=== PATIENT | female | born 1975 | race African-American/Black ===

== ENCOUNTER 2016-08-16 12:55 | Emergency (ER) | payer MEDICAID ==
[~2016-08-16] VITALS: Ht 172.7 cm; Wt 63.5 kg
[~2016-08-16 12:55] MED LIST: NORCO 5-325 TA1 EACH ORAL; PREDNISONE20 MG ORAL; TRAMADOL HCL50 MG ORAL
[2016-08-16 13:13] VITALS: BP 114/74
[2016-08-16] MEDS ORDERED: Methocarbamol 750mg tab ORAL ONE (13:30)
[2016-08-16] MEDS ORDERED: IBUPROFEN600 MG ORAL (13:48)
[2016-08-16] MEDS ORDERED: ROBAXIN-750750 MG PO (13:48)
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
[2016-08-16 13:59] VITALS: BP 114/74
== END 2016-08-16 13:59 | disposition home or self-care (01) ==
LOC: EMR 13:18
DX: T14.90 Injury, unspecified (principal); M25.561 Pain in right knee; M54.9 Dorsalgia, unspecified; V43.52XA Car driver injured in collision with other type car in traffic accident, initial encounter; Y93.9 Activity, unspecified; Y92.410 Unspecified street and highway as the place of occurrence of the external cause; Z88.6 Allergy status to analgesic agent
CPT/HCPCS: 99284

== ENCOUNTER 2016-08-19 14:26 | Emergency (ER) | payer MEDICAID ==
[~2016-08-19] VITALS: Ht 172.7 cm; Wt 63.5 kg
[~2016-08-19 14:26] MED LIST changes: +IBUPROFEN600 MG ORAL; +ROBAXIN-750750 MG PO
[2016-08-19 14:51] VITALS: BP 94/62
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
[2016-08-19] MEDS ORDERED: SOMA350 MG PO (15:48)
[2016-08-19 16:05] VITALS: BP 94/62
== END 2016-08-19 16:05 | disposition home or self-care (01) ==
LOC: EMR 14:59
DX: M62.838 Other muscle spasm (principal); M54.2 Cervicalgia; Z88.6 Allergy status to analgesic agent
CPT/HCPCS: 72040; 99283

== ENCOUNTER 2016-11-16 13:25 | Emergency (ER) | payer MEDICAID ==
[~2016-11-16] VITALS: Ht 172.7 cm; Wt 68.0 kg
[~2016-11-16 13:25] MED LIST changes: +SOMA350 MG PO
[2016-11-16 13:49] VITALS: BP 120/71
[2016-11-16] MEDS ORDERED: Methocarbamol 750mg tab ORAL ONE (14:00)
[2016-11-16] MEDS ORDERED: IBUPROFEN600 MG ORAL (14:26)
[2016-11-16] MEDS ORDERED: ROBAXIN-750750 MG PO (14:26)
[2016-11-16 14:38] VITALS: BP 120/71
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
== END 2016-11-16 14:40 | disposition home or self-care (01) ==
LOC: EMR 13:54
DX: S16.1XXA Strain of muscle, fascia and tendon at neck level, initial encounter (principal); V48.5XXA Car driver injured in noncollision transport accident in traffic accident, initial encounter; Y93.9 Activity, unspecified; Y92.481 Parking lot as the place of occurrence of the external cause; Z88.6 Allergy status to analgesic agent
CPT/HCPCS: 99284

== ENCOUNTER 2017-09-27 12:08 | Emergency (ER) | payer MEDICAID ==
[~2017-09-27] VITALS: Ht 172.7 cm; Wt 65.8 kg
--- NOTE | 2017-09-27 13:21 | Emergency Room Report ---
History of Present Illness General Chief Complaint: Female Urogenital Problems Present Illness HPI 42-year-old female patient presents ER complaining of difficulty urinating for the past day and dysuria. Reports that she was able to "dribble a little bit of urine" at 2 AM this morning but has been hesitant to do so secondary to pain symptoms.. Has been able to urinate on the ER. Denies vaginal discharge. denies hematuria, general rash or lesions. Denies itching. Denies fever, chest pain, shortness of breath, flank pain. Denies vomiting. Denies back pain. (Toro Dominguez) Allergies: Coded Allergies: CODEINE (Unverified Allergy, Unknown, 08/22/14) Patient History Past Medical History: see triage record Last Menstrual Period: 09/23/17 Now: No Reviewed Nursing Documentation: PMH: Agreed; PSxH: Agreed (Toro Dominguez) Nursing Documentation-PMH Hx Hypertension: No Hx Pacemaker: No Hx Asthma: No Hx COPD: No Hx Diabetes: No Hx Cancer: No Hx Gastrointestinal Problems: No Hx Dialysis: No Hx Cerebrovascular Accident: No Hx Seizures: No (Toro Dominguez P.ATheodora) Review of Systems All Other Systems: negative except mentioned in HPI (Toro Dominguez P.Bret) Physical Exam Vital Signs Date Time Temp Pulse Resp B/P (MAP) Pulse Ox O2 Delivery O2 Flow Rate FiO2 09/27/17 12:18 98.2 78 16 129/92 100 Room Air 98.2 Sp02 EP Interpretation: reviewed, normal General Appearance: well appearing, no apparent distress, alert, GCS 15, non- toxic Head: normocephalic, atraumatic Eyes: bilateral eye normal inspection, bilateral eye PERRL ENT: hearing grossly normal, normal pharynx, no angioedema, normal voice, uvula midline, moist mucus membranes Neck: full range of motion Respiratory: lungs clear, normal breath sounds, no rhonchi, no respiratory distress, no accessory muscle use, no wheezing, speaking full sentences Cardiovascular #1: regular rate, rhythm, no edema Genitourinary: no CVA tenderness, deferred Musculoskeletal: back normal, digits/nails normal, gait/station normal, normal range of motion, non-tender Neurologic: alert, oriented x3, responsive, motor strength/tone normal, sensory intact Psychiatric: mood/affect normal Skin: no rash (Toro Dominguez) Medical Decision Making PA Attestation Dr. Steele is my supervising Physician whom patient management has been discussed with. (Toro Dominguez) Diagnostic Impression: Primary Impression: Urinary tract infection ER Course Pt presents to ED c/o dysuria. DDX considered but are not limited to cystitis, pyelonephritis, STI, vaginitis, . VITAL SIGNS are WNL, patient is afebrile. Ordered UA and urine . ER COURSE UA results show positive nitrites, positive bacteria, indicate UTI, will treat with abx. urine negative. Informed patient of results. If concern for STI, followup with STI clinic for testing and treatment. Denies STI concern. Drink plenty of fluids. Patient is resting comfortably in chair, nontoxic appearing, in no acute distress. Patient states they feel better and is ready to go home. DISCHARGE -Rx provided for Keflex Patient is stable for discharge. Patient resting comfortably, in no acute distress, nontoxic appearing, talking without difficulty. Will provide with patient care instructions and any necessary prescriptions. Patient understands and agrees to treatment plan. Patient encouraged to drink plenty of fluids. Patient to take medication as instructed. Care plan and follow-up instructions provided. Patient questions asked and answered. Reports understanding and agreement to treatment plan. Patient instructed to follow-up with primary care provider in 3 - 5 days. ER precautions given. Patient instructed to return to ER immediately for any new or worsening of symptoms. Including but not limited to fever, abdominal pain , intractable vomiting. - Please note that this Emergency Department Report was dictated using [email or web address] machine operator technology software, occasionally this can lead to erroneous entry secondary to interpretation by the dictation equipment. Labs Test 09/27/17 12:56 Urine Color Pale yellow Urine Appearance Clear Urine pH 6 (4.5-8.0) Urine Specific [place] 1.005 (1.005-1.035) Urine Protein Negative (NEGATIVE) Urine Glucose (UA) Negative (NEGATIVE) Urine Ketones Negative (NEGATIVE) Urine Occult Blood 2+ (NEGATIVE) Urine Nitrite Positive (NEGATIVE) Urine Bilirubin Negative (NEGATIVE) Urine Urobilinogen Normal MG/DL (0.0-1.0) Urine Leukocyte Esterase 3+ (NEGATIVE) Urine RBC 2-4 /HPF (0 - 2) Urine WBC 10-15 /HPF (0 - 2) Urine Squamous Epithelial Cells Few /LPF (NONE/OCC) Urine Bacteria Moderate /HPF (NONE) Urine HCG, Qualitative Negative (NEGATIVE) (Toro Dominguez) ER Course I had the pleasure speaking with Ms. Ahn today, in follow-up phone call, she reports her urinary symptoms are greatly improved since Michell K prescribe her Keflex, and she is very satisfied with his service and requested that I mention that. She is feeling much better after taking Keflex, so I will not change her antibiotics as there is a culture that reported intermediate sensitivity tocefazolin, although it was Rocephin sensitive. (ARTEM DE LA GARZA M.D) Last Vital Signs Date Time Temp Pulse Resp B/P (MAP) Pulse Ox O2 Delivery O2 Flow Rate FiO2 09/27/17 12:18 98.2 78 16 129/92 100 Room Air 98.2 (Toro Dominguez) Disposition: HOME, SELF-CARE Condition: Stable Scripts Cephalexin* (KEFLEX*) 500 Mg Capsule 500 MG ORAL EVERY 12 HOURS, #14 CAP 0 Refills Prov: Toro Dominguez 09/27/17 Referrals: [facility]ERR[facility] (PCP) Patient Instructions: Urinary Tract Infection Additional Instructions: Followup with primary care provider and followup with and/or OBGYN as needed. Drink plenty of fluids. Take medications as directed. Follow-up with STI clinic and/or primary care provider for further testing and treatment for evaluation of STI. Patient questions asked and answered. ER precautions given, patient instructed to return to ER immediately for any new or worsening of symptoms. Toro Dominguez Sep 27, 2017 13:21 ARTEM DE LA GARZA M.D Sep 30, 2017 15:07
[2017-09-27 13:30] VITALS: BP 129/92
[2017-09-27 13:48] LABS: APPEARANCE,URINE CLEAR; BILIRUBIN, URINE NEGATIVE (NEGATIVE); COLOR,URINE PALE YELLOW; GLUCOSE, URINE (UA) NEGATIVE (NEGATIVE); KETONES,URINE NEGATIVE (NEGATIVE); LEUKOCYTE ESTERASE ,URINE 3+ (NEGATIVE); NITRITE,URINE POSITIVE (NEGATIVE); PH,URINE 6 (4.5-8.0); PROTEIN,URINE NEGATIVE (NEGATIVE); UROBILINOGEN,URINE NORMAL MG/DL (0.0-1.0)
[2017-09-27] MEDS ORDERED: CEPHALEXIN500 MG ORAL (14:06)
== END 2017-09-27 13:30 | disposition home or self-care (01) ==
LOC: EMR 13:17
DX: N39.0 Urinary tract infection, site not specified (principal); Z88.6 Allergy status to analgesic agent
CPT/HCPCS: 81003; 81025; 87086; 87181; 99283

== ENCOUNTER 2017-10-09 07:54 | Emergency (ER) | payer MEDICAID ==
[~2017-10-09] VITALS: Ht 172.7 cm; Wt 65.3 kg
[~2017-10-09 07:54] MED LIST changes: +CEPHALEXIN500 MG ORAL
--- NOTE | 2017-10-09 08:27 | Emergency Room Report ---
History of Present Illness General Chief Complaint: Chest Pain Source: Patient Present Illness HPI Patient just with complaints of palpitation sensation Weight loss Reports that in June she had thyroid examination done on blood test However there has been some mixup she has not been able to get her results Over the past few days had increased episodes of palpitation sensation Denies any chest pain with this Denies any shortness of breath Denies any back or flank pain She reports abnormal menstrual cycle starting before her next regular cycle Allergies: Coded Allergies: CODEINE (Unverified Allergy, Unknown, 08/22/14) Patient History Past Medical History: see triage record Pertinent Family History: none Last Menstrual Period: on period Reviewed Nursing Documentation: PMH: Agreed; PSxH: Agreed Nursing Documentation-PMH Past Medical History: No Stated History Hx Hypertension: No Hx Pacemaker: No Hx Asthma: No Hx COPD: No Hx Diabetes: No Hx Cancer: No Hx Gastrointestinal Problems: No Hx Dialysis: No Hx Cerebrovascular Accident: No Hx Seizures: No Review of Systems All Other Systems: negative except mentioned in HPI Physical Exam Vital Signs Date Time Temp Pulse Resp B/P (MAP) Pulse Ox O2 Delivery O2 Flow Rate FiO2 10/09/17 07:56 98.1 69 14 121/83 100 Room Air 98.1 Sp02 EP Interpretation: reviewed, normal General Appearance: well appearing, no apparent distress Head: normocephalic, atraumatic Eyes: bilateral eye PERRL, bilateral eye EOMI ENT: hearing grossly normal, normal pharynx, TMs + canals normal, uvula midline Neck: full range of motion, supple, no meningismus, no bony tend Respiratory: lungs clear, normal breath sounds, no rhonchi, no respiratory distress, no retraction, no accessory muscle use Cardiovascular #1: normal peripheral pulses, regular rate, rhythm, no edema, no gallop, no JVD, no murmur Gastrointestinal: normal bowel sounds, non tender, soft, no mass, no organomegaly, non-distended, no guarding, no hernia, no pulsatile mass, no rebound Genitourinary: no CVA tenderness Musculoskeletal: normal inspection Neurologic: oriented x3, responsive, fur dyer III-XII nml as tested, motor strength/ tone normal, sensory intact Psychiatric: mood/affect normal Skin: normal color, no rash, warm/dry, palpation normal Lymphatic: normal inspection, no adenopathy Medical Decision Making Diagnostic Impression: Primary Impression: Palpitations ER Course Patient is a fairly complex patient with multiple differential to consideration including but not limited to cardiac cardiopulmonary and vascular emergencies Patient's EKG does not show any obvious ST elevation Blood work is appropriate with normal thyroid function test patient does have marijuana in her system and reports that she smokes marijuana regularly Also discussed possible side effects and risk factors with cardiac pathology Patient has follow up closely with her primary physician her urine still shows some continued infection improved given the microbiology from previous the antibiotic is changed to Bactrim Labs Test 10/09/17 08:15 10/09/17 08:25 Urine Color Yellow Urine Appearance Clear Urine pH 6 (4.5-8.0) Urine Specific Elizabeth 1.020 (1.005-1.035) Urine Protein 1+ (NEGATIVE) Urine Glucose (UA) Negative (NEGATIVE) Urine Ketones Negative (NEGATIVE) Urine Occult Blood 2+ (NEGATIVE) Urine Nitrite Negative (NEGATIVE) Urine Bilirubin Negative (NEGATIVE) Urine Urobilinogen 1 MG/DL (0.0-1.0) Urine Leukocyte Esterase 2+ (NEGATIVE) Urine RBC 2-4 /HPF (0 - 2) Urine WBC 15-20 /HPF (0 - 2) Urine Squamous Epithelial Cells Few /LPF (NONE/OCC) Urine Bacteria Few /HPF (NONE) Urine HCG, Qualitative Negative (NEGATIVE) Urine Opiates Screen Negative (NEGATIVE) Urine Barbiturates Screen Negative (NEGATIVE) Phencyclidine (PCP) Screen Negative (NEGATIVE) Urine Amphetamines Screen Negative (NEGATIVE) Urine Benzodiazepines Screen Negative (NEGATIVE) Urine Cocaine Screen Negative (NEGATIVE) Urine Marijuana (THC) Screen Positive (NEGATIVE) White Blood Count 4.2 K/UL (4.8-10.8) Red Blood Count 4.88 M/UL (4.20-5.40) Hemoglobin 14.7 G/DL (12.0-16.0) Hematocrit 44.2 % (37.0-47.0) Mean Corpuscular Volume 90 FL (80-99) Mean Corpuscular Hemoglobin 30.0 PG (27.0-31.0) Mean Corpuscular Hemoglobin Concent 33.2 G/DL (32.0-36.0) Red Cell Distribution Width 11.7 % (11.6-14.8) Platelet Count 211 K/UL (150-450) Mean Platelet Volume 6.9 FL (6.5-10.1) Neutrophils (%) (Auto) 43.3 % (45.0-75.0) Lymphocytes (%) (Auto) 42.3 % (20.0-45.0) Monocytes (%) (Auto) 10.9 % (1.0-10.0) Eosinophils (%) (Auto) 1.4 % (0.0-3.0) Basophils (%) (Auto) 2.1 % (0.0-2.0) Sodium Level 141 MMOL/L (136-145) Potassium Level 3.3 MMOL/L (3.5-5.1) Chloride Level 104 MMOL/L (98-107) Carbon Dioxide Level 30 MMOL/L (21-32) Anion Gap 7 mmol/L (5-15) Blood Urea Nitrogen 7 mg/dL (7-18) Creatinine 0.7 MG/DL (0.55-1.30) Estimat Glomerular Filtration Rate > 60 mL/min (>60) Glucose Level 93 MG/DL (74-106) Calcium Level 9.0 MG/DL (8.5-10.1) Thyroid Stimulating Hormone (TSH) 0.565 uiU/mL (0.358-3.740) Free Thyroxine 0.87 NG/DL (0.76-1.46) EKG Diagnostic Results Rate: normal Rhythm: NSR ST Segments: other - Nonspecific T-wave changes Rhythm Strip Diag. Results EP Interpretation: yes Rate: 66 Rhythm: NSR, no PVC's, no ectopy Last Vital Signs Date Time Temp Pulse Resp B/P (MAP) Pulse Ox O2 Delivery O2 Flow Rate FiO2 10/09/17 07:56 98.1 69 14 121/83 100 Room Air 98.1 Status: improved Disposition: HOME, SELF-CARE Condition: Improved Scripts Trimethoprim/Sulfamethoxazole 160/800* (BACTRIM DS TABLET*) 1 Each Tablet 1 TAB ORAL Q12H, #14 TAB 0 Refills Prov: Jayda Vizcaino DO 10/09/17 Additional Instructions: Patient is provided with the discharge instructions notified to follow up with primary doctor in the next 2-3 days otherwise return to the er with any worsening symptoms. Please note that this report is being documented using [employer]ON technology. This can lead to erroneous entry secondary to incorrect interpretation by the dictating instrument. Jayda Vizcaino DO Oct 09, 2017 08:27
[2017-10-09 08:38] LABS: APPEARANCE,URINE CLEAR; BILIRUBIN, URINE NEGATIVE (NEGATIVE); GLUCOSE, URINE (UA) NEGATIVE (NEGATIVE); KETONES,URINE NEGATIVE (NEGATIVE); LEUKOCYTE ESTERASE ,URINE 2+ (NEGATIVE); NITRITE,URINE NEGATIVE (NEGATIVE); PH,URINE 6 (4.5-8.0); PROTEIN,URINE 1+ (NEGATIVE); UROBILINOGEN,URINE 1 MG/DL (0.0-1.0)
[2017-10-09 08:39] LABS: BASOPHILS % (AUTO) 2.1 % (0.0-2.0); EOSINOPHILS % (AUTO) 1.4 % (0.0-3.0); HEMATOCRIT 44.2 % (37.0-47.0); HEMOGLOBIN 14.7 G/DL (12.0-16.0); LYMPHOCYTES % (AUTO) 42.3 % (20.0-45.0); MEAN CORPUSCULAR VOLUME 90 FL (80-99); MONOCYTES % (AUTO) 10.9 % (1.0-10.0); NEUTROPHILS % (AUTO) 43.3 % (45.0-75.0); PLATELET COUNT 211 K/UL (150-450); RED BLOOD COUNT 4.88 M/UL (4.20-5.40); RED CELL DISTRIBUTION WIDTH 11.7 % (11.6-14.8); WHITE BLOOD COUNT 4.2 K/UL (4.8-10.8)
[2017-10-09 08:40] LABS: COLOR,URINE YELLOW
[2017-10-09 08:50] LABS: ANION GAP 7 mmol/L (5-15); BLOOD UREA NITROGEN 7 mg/dL (7-18); CARBON DIOXIDE 30 MMOL/L (21-32); CHLORIDE 104 MMOL/L (98-107); CREATININE 0.7 MG/DL (0.55-1.30); POTASSIUM 3.3 MMOL/L (3.5-5.1); SODIUM 141 MMOL/L (136-145)
[2017-10-09 09:05] VITALS: BP 125/81
[2017-10-09] MEDS ORDERED: BACTRIM DS TAB1 EAC1 ORAL (09:29)
[2017-10-09 09:42] VITALS: BP 125/81
--- NOTE | 2017-10-09 14:18 | Cardiology Report ---
APPROVED REPORT EKG Measurement Heart [id number] IA [id number] [id number] Normal sinus rhythm T wave abnormality, consider anterior ischemia Abnormal ECG
== END 2017-10-09 09:45 | disposition home or self-care (01) ==
LOC: EMR 08:38
DX: R00.2 Palpitations (principal); Z88.5 Allergy status to narcotic agent
CPT/HCPCS: 36415; 80048; 80307; 81003; 81025; 84439; 84443; 85025; 87086; 93005; 99283

== ENCOUNTER 2017-12-29 05:02 | Inpatient (IN) | payer OTHER ==
[2017-12-29] VITALS (13 sets, daily range): BP systolic 100–139; BP diastolic 50–86
[~2017-12-29] VITALS: Ht 172.7 cm; Wt 60.3 kg
[~2017-12-29 05:02] MED LIST changes: +BACTRIM DS TAB1 EAC1 ORAL
[2017-12-29] MEDS ORDERED: Zemuron 50mg/5ml Inj IV ONE (06:10)
[2017-12-29] MEDS ORDERED: LR 1000ml 1,000 ML IVLG SCH (06:13)
[2017-12-29] MEDS ORDERED: Acetaminophen (Non formulary) 100 ML IV ONE (06:15)
[2017-12-29] MEDS ORDERED: Ketorolac 30mg Inj IV PRN ×2 (06:15)
[2017-12-29] MEDS ORDERED: LORazepam Inj 2mg/ml 1ml IV PRN (06:15)
[2017-12-29] MEDS ORDERED: Atropine Sulfate 0.4mg/ml inj IVP PRN (06:15)
[2017-12-29] MEDS ORDERED: DiphenhydrAMINE 50mg/ml Inj IVP PRN (06:15)
[2017-12-29] MEDS ORDERED: fentaNYL 100 mcg/2 mL IV PRN (06:15)
[2017-12-29] MEDS ORDERED: Midazolam 2mg/2ml Inj IVP PRN (06:15)
[2017-12-29] MEDS ORDERED: Meperidine 50mg/ml Inj(FOR RIGORS ONLY) IVP PRN (06:15)
[2017-12-29] MEDS ORDERED: Metoclopramide 10mg/2ml Inj IVP PRN (06:15)
--- NOTE | 2017-12-29 06:28 | Anethesia Preoperative Eval ---
Anesthesia Pre-op PMH/ROS General Date of Evaluation: Dec 29, 2017 Time of Evaluation: 08:21 Anesthesiologist: Donna ASA Score: ASA 2 Mallampati Score Class I : Soft palate, uvula, fauces, pillars visible Class II: Soft palate, uvula, fauces visible Class III: Soft palate, base of uvula visible Class IV: Only hard plate visible Mallampati Classification: Class II Surgeon: Radha Diagnosis: Back Pain Surgical Procedure: L5-S1, S1-S2 Hemilaminotomy, Disectomy Anesthesia History: none Family History: no anesthesia problems Allergies: Coded Allergies: CODEINE (Unverified Adverse Reaction, Unknown, NAUSEA, 12/29/17) Medications: see eMAR Patient NPO?: Yes NPO Date: Dec 28, 2017 NPO Time: 2100 Anesthesia Pre-op Phys. Exam Physician Exam Last Vital Signs Date Time Temp Pulse Resp B/P (MAP) Pulse Ox O2 Delivery O2 Flow Rate FiO2 12/29/17 05:55 Room Air 12/29/17 05:43 98.0 76 18 128/83 (98) 100 Constitutional: NAD Neurologic: CN 2-12 intact Cardiovascular: RRR Respiratory: CTA Gastrointestinal: S/NT/ND Airway Exam Mallampati Score: Class II MO: full ROM: full Teeth: intact Anesthesia Pre-op A/P Labs Urine Test Test 12/29/17 05:40 Urine HCG, Qualitative Negative (NEGATIVE) Risk Assessment & Plan Assessment: ASA 2 Plan: GA, SED, GlideScope Go Status Change Before Surgery: No Pre-Antibiotics Dru Grams Ancef IV Given Within 1 Hr of Incision: Yes Time Given: 08:46 Italo Thompson MD Dec 29, 2017 06:28
[2017-12-29] MEDS ORDERED: Lidocaine 1% MPF 10mg/ml 5ml ONE (06:38)
[2017-12-29] MEDS ORDERED: Lidocaine 1% Plain 30 ml INJ ONE ×2 (06:38→06:45)
[2017-12-29] MEDS ORDERED: Sodium Chloride 10ml vial INJ ONE (06:38)
[2017-12-29] MEDS ORDERED: fentaNYL 100 mcg/2 mL IV ONE ×2 (06:42→09:32)
[2017-12-29] MEDS ORDERED: Thrombin 5000 units TOPIC ONE (06:45)
[2017-12-29] MEDS ORDERED: Gelfoam Size TOPIC ONE (06:45)
[2017-12-29] MEDS ORDERED: Bacitracin 50000 Units Vial ONE (06:45)
[2017-12-29] MEDS ORDERED: Bupivacaine 0.5% Inj 30 ml vial INJ ONE (06:45)
[2017-12-29] MEDS ORDERED: Dexamethasone 20mg/5ml IVP ONE (07:00)
[2017-12-29] MEDS ORDERED: HYDROmorphone 1mg/ml Carpuject SUBQ PRN (07:00)
[2017-12-29] MEDS ORDERED: Chloraseptic Spray 20mL Bottle ORAL PRN (07:00)
[2017-12-29] MEDS ORDERED: ceFAZolin sod 1 GM in NS 55 ML IVPB ONE (07:00)
[2017-12-29] MEDS ORDERED: LR 1000ml ONE (08:30)
[2017-12-29] MEDS ORDERED: NS Irrig 1000ml ONE (08:30)
[2017-12-29] MEDS ORDERED: Propofol 1,000mg/ 100ml btl IV ONE (08:30)
[2017-12-29] MEDS ORDERED: Sterile Water Irrig 1000ml IRRIG ONE (08:30)
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
--- NOTE | 2017-12-29 08:37 | Pre-Procedure Note/Attestation ---
Pre-Procedure Note/Attestation Complete Prior to Procedure Planned Procedure: not applicable Procedure Narrative: L5-S1/S1 microdiscectomy Indications for Procedure Pre-Operative Diagnosis: traumatic HNP Attestation I attest that I discussed the nature of the procedure; its benefits; risks and complications; and alternatives (and the risks and benefits of such alternatives ), prior to the procedure, with the patient (or the patient's legal manufacturer's service representative). I attest that, if there was a reasonable possibility of needing a blood transfusion, the patient (or the patient's legal manufacturer's service representative) was given the [facility] standardized written summary, pursuant to the [place] Blood Safety Act ([place] Health and Safety Code # 1645, as amended). I attest that I re-evaluated the patient just prior to the surgery and that there has been no change in the patient's H&P, except as documented below: SHELL RAMIREZ Dec 29, 2017 08:36
[2017-12-29] MEDS ORDERED: Neostigmine 1mg/ml 10ml Inj ONE (10:27)
[2017-12-29] MEDS ORDERED: Glycopyrrolate 0.2mg/ml 1ml Vial ONE (10:27)
--- NOTE | 2017-12-29 10:40 | Brief Operative Note ---
Immediate Post Operative Note Operative Note Pre-op Diagnosis: traumatic HNP Procedure: L5-S1 microdiscectomy Local Xray Magnification Post-op Diagnosis: same as pre-op Findings: consistent w/pre-op dx studies Surgeon: Radha ESTRELLA Engineering And Development Director: Satnam KING Anesthesiologist: Donna ESTRELLA Anesthesia: general Specimen: yes Complications: none Condition: stable Fluids: anesthesia Estimated Blood Loss: minimal Drains: none Implant(s) used?: No SHELL RAMIREZ Dec 29, 2017 10:40
--- NOTE | 2017-12-29 11:16 | Immediate Post-Op Evaluation ---
Immediate Post-Op Evalulation Immediate Post-Op Evalulation Procedure: L5-S1, S1-S2 Hemilaminotomy, Disectomy Date of Evaluation: Dec 29, 2017 Time of Evaluation: 11:27 IV Fluids: 900 LR Blood Products: 0 Estimated Blood Loss: 20 Urinary Output: 0 Blood Pressure Systolic: 139 Blood Pressure Diastolic: 86 Pulse Rate: 63 Respiratory Rate: 16 O2 Sat by Pulse Oximetry: 100 Temperature (Fahrenheit): 97 Pain Score (1-10): 2 Nausea: No Vomiting: No Complications 0 Patient Status: awake, reacts, patent, none Hydration Status: adequate Dru Grams Ancef IV Given Within 1 Hr of Incision: Yes Time Given: 08:46 Italo Thompson MD Dec 29, 2017 11:16
[2017-12-29] MEDS: Dronabinol 2.5mg Cap ORAL SCH ×3 (11:53→21:06)
[2017-12-29] MEDS ORDERED: D5 1/2NS 1,000 ML IV SCH (12:49)
[2017-12-29] MEDS: HYDROmorphone 1mg/ml Carpuject SUBQ PRN ×2 (13:51→20:34)
--- NOTE | 2017-12-29 14:17 | Diagnostic Imaging Report ---
Indication: Back pain Comparison: None Findings: 3 fluoroscopic views of the lumbar spine were obtained. Instrumentation noted posterior to the L5-S1 disc on views obtained. IMPRESSION: Intraoperative imaging
[2017-12-29] MEDS: ceFAZolin sod 1 GM in D5W 55 ML IV SCH (17:19)
--- NOTE | 2017-12-29 19:45 | Operative Note - Dictated ---
DATE OF OPERATION: 12/29/2017 SURGEON: Stef Garcia M.D. DIVE SUPERINTENDENT: CHRISTINE Qureshi. ANESTHESIOLOGIST: Italo Thompson M.D. ANESTHESIA: General with intubation. 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 POSTOPERATIVE DIAGNOSIS: Posttraumatic lumbar herniated nucleus pulposus with radiculopathy. OPERATIVE PROCEDURES: 1. L5-S1 decompression with microdiscectomy. 2. High-power magnification dissection. 3. Local anesthetic applied by surgeon 1% lidocaine without epinephrine. 4. Intraoperative fluoroscopy interpreted by surgeon. DRAINS: None. COMPLICATIONS: None. POSTOP CONDITION: Good/stable. SPECIMEN: Disc fragments to pathology. PROCEDURE IN DETAIL: The patient was brought to the operating room and in the supine position, general anesthesia with intubation was induced. IV antibiotics and IV Decadron were administered 30 minutes prior to incision time. The patient was carefully turned and positioned in the prone position. Lumbodorsal spine was sterilely prepped and spinal needle was placed midline into the subcutaneous tissue only. Cross-table radiograph obtained under sterile conditions demonstrating the correct level for further incision placement. Level marked. Needle removed. Back resterilely prepped and draped free in usual sterile fashion. A longitudinal midline incision at the appropriate interval was sharply placed through the dermis and epidermis. Electrocautery dissection was carried through subcutaneous tissue to the level of lumbodorsal fascia. Right/left exposure of the lamina/S1 was undertaken under high-power magnification. No dural tears or leaks noted anytime during the procedure. Marker was placed. Radiographs obtained demonstrating the correct levels for the dissection. Hemilaminotomy inferior L5 right superior S1 with decompression undertaken with a combination under high-power magnification, Midas Jose bur dissection, and Kerrison Rongeur dissection. No dural tears or leaks anytime during the procedure. Bipolar electrocauterization was utilized minimally for epidural bleeding. Dissection was carried lateral to the exiting nerve root after fluoroscopic imaging was obtained, interpreted by surgeon demonstrating the correct level for further dissection with markers in place. Annulotomy was performed right at midline diskectomy not exceeding 10 mm from posterior to anterior, medial lateral, and lateral medial. No gross bleeding from the disk space . Disc space irrigated with antibiotic-containing saline. No further fragments identified. Decompression undertaken right superior S1 with dissection into the lateral gutter decompression. Wound was copiously irrigated with antibiotic-containing saline. FloSeal applied. Sequential reapproximation of the lumbodorsal fascia, subcutaneous tissue in multiple layers, subcuticular reapproximation. Local anesthetic 1% lidocaine without epinephrine was introduced into the dermal/subcutaneous interval bilateral lateral aspects of the incision. Surgical strips applied followed with a sterile bandage was maintained in place with tape. The patient was carefully turned from the prone to the supine position on the transport bed where she was awakened and extubated in the operating room and transported to postop recovery in good stable condition. Stef Garcia M.D. DR: GABRIELA JOB#: [id number] CC:
[2017-12-29] MEDS ORDERED: TransDerm Scop 1mg/72HR Patch TDERMAL SCH (20:48)
[2017-12-29] MEDS: LR 1000ml 1,000 ML IV SCH (21:01)
[2017-12-29] MEDS: Morphine Sulfate 4mg/ml Inj (IV/IM USE ONLY) IM PRN (21:57)
[2017-12-30] VITALS: BP 101/56
[2017-12-30] MEDS: ceFAZolin sod 1 GM in D5W 55 ML IV SCH ×2 (00:20→08:43)
[2017-12-30] MEDS: LR 1000ml 1,000 ML IV SCH ×2 (02:46→08:43)
[2017-12-30] MEDS: Morphine Sulfate 4mg/ml Inj (IV/IM USE ONLY) IM PRN ×2 (03:22→07:50)
[2017-12-30 04:00] VITALS: BP 104/59
[2017-12-30] MEDS: Dronabinol 2.5mg Cap ORAL SCH (05:07)
--- NOTE | 2017-12-30 05:15 | Progress Note ---
DATE: 12/30/2017 ACUTE PAIN MANAGEMENT PHYSICIAN PROGRESS NOTE MEDICATIONS: Medication administration record reviewed. Medications include Phenergan, Chloraseptic spray, Protonix, Zofran, morphine, Dilaudid, Marinol, Benadryl, Mylanta, intravenous fluids. LABORATORY STUDIES: No interval laboratory studies. OBJECTIVE: VITAL SIGNS: Within normal limits. Afebrile, pulse 79, respirations 20, blood pressure 104/59, and oxygen saturation 99% on room air. I spent over 60 minutes in consultation today. I saw the patient at bedside after discussion with the nurse RN, Bouchra. After yesterday's surgery, the patient had refractory nausea, which required the patient to stay overnight in the hospital. She did receive a Dilaudid injection earlier in the day. It is unclear the culprit and source of the nausea. Certainly, the anesthetic gases could have contributed as well. She failed multiple trials of Zofran and Phenergan without improvement in her active vomiting. I switched over intravenous fluids to lactated Ringer, which I increased to 175 cubic centimeters an hour for intravascular rehydration. I switched over the Dilaudid to intramuscular morphine, which was better tolerated. She was unable to stop vomiting and tolerate the oral Marinol, which continued on a every 8 hours basis. I applied a scopolamine patch and the patient has been nausea free for the past 8 hours. The outpatient pharmacy was able to fill her prescription for [place] for outpatient usage. Incentive spirometer remains at the bedside to encourage good pulmonary toilet. The patient is breathing comfortably on room air. The patient is neurologically intact. Moving all extremities x4. The patient will follow up with Dr. Garcia in the outpatient surgical clinic in approximately two weeks. The patient will continue using her medical marijuana at home for primary analgesia as well. The patient's sister who will be able to pick her up later today. At this point, I agree with Dr. Garcia for discharge trial home. The patient has been able to ambulate in and out of bed without assistance. Raghu Hicks M.D. DR: MELVIN JOB#: [id number] CC:
[2017-12-30 08:00] VITALS: BP 94/44
[2017-12-30] MEDS ORDERED: NORCO 10-325 T1 EACH ORAL (08:18)
--- NOTE | 2017-12-30 09:55 | 48 Hour Post Anesthesia Eval ---
Post Anesthesia Evaluation Procedure: L5-S1, S1-S2 Hemilaminotomy, Disectomy Date of Evaluation: Dec 30, 2017 Time of Evaluation: 09:54 Blood Pressure Systolic: 106 0: 78 Pulse Rate: 68 Respiratory Rate: 20 Temperature (Fahrenheit): 97.6 O2 Sat by Pulse Oximetry: 98 Airway: patent Nausea: No Vomiting: No Pain Intensity: 2 Hydration Status: adequate Cardiopulmonary Status: stable Mental Status/LOC: patient returned to baseline Follow-up Care/Observations: n/a Post-Anesthesia Complications: none Follow-up care needed: N/A Hola Olguin MD Dec 30, 2017 09:55
[2017-12-30 12:00] VITALS: BP 92/40
[2017-12-30] MEDS ORDERED: Tubing IV Secondary IV ONE (13:04)
[2017-12-30] MEDS ORDERED: LR 1000ml ONE (13:04)
--- NOTE | 2018-01-01 13:37 | Discharge Summary ---
Discharge Summary Hospital Course Date of Admission Dec 29, 2017 at 11:37 Date of Discharge Dec 30, 2017 at 13:05 Admitting Diagnosis lUmbar herniated nucleus pulposus with radiculopathy. Reason for Hospitalization: elective surgery HPI Katie Ahn is a 42 year old female who was admitted on Dec 29, 2017 at 11: 37 for Lumbar Herniated nucleus pulposus with radiculopathy. Patient was admitted for elective surgery. Consultations dr Hicks- pain specialist Procedures s/p 12/29/[address] Garcia 1. L5-S1 decompression with microdiscectomy. 2. High-power magnification dissection. 3. Local anesthetic applied by surgeon 1% lidocaine without epinephrine. 4. Intraoperative fluoroscopy interpreted by surgeon. Hospital Course status post surgery course of recovery uneventful initially IV fluids s/p perioperative antibiotics neurovascular status closely monitored, stable incision clean ,dry, and intact pain management addressed pain specialist followed; pain controlled hemodynamically stable ambulated with PT fall precautions maintained; safe for ambulation tolerated diet , IV fluids discontinued GI prophylaxis provided antiemetics were on board as needed voided freely bowel regimen instituted patient was stable for discharge discharge instructions provided follow up with surgeon in 2 weeks FINAL DIAGNOSES 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 I was not involved in the patient management Bridget Rader NP Jan 01, 2018 13:37
== END 2017-12-30 13:05 | disposition home or self-care (01) | DRG 520 ==
LOC: SUR 05:02 → 3E 11:37
PROC: 0SB20ZZ Excision of Lumbar Vertebral Disc, Open Approach (ICD-10-PCS; principal; 2017-12-29 07:00)
DX: M51.16 Intervertebral disc disorders with radiculopathy, lumbar region (principal); V89.2XXS Person injured in unspecified motor-vehicle accident, traffic, sequela; Z88.6 Allergy status to analgesic agent; R11.2 Nausea with vomiting, unspecified; G89.18 Other acute postprocedural pain
CPT/HCPCS: 36415; 72020; 76001; 81025; 86850; 86900; 86901; 87081; 94003; 94150; J2405; J2710

== ENCOUNTER 2018-01-04 10:21 | Emergency (ER) | payer OTHER ==
[~2018-01-04] VITALS: Ht 172.7 cm; Wt 59.0 kg
[~2018-01-04 10:21] MED LIST changes: +NORCO 10-325 T1 EACH ORAL
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
[2018-01-04 11:36] VITALS: BP 132/78
== END 2018-01-04 11:35 | disposition home or self-care (01) ==
LOC: EMR 10:45
DX: Z48.817 Encounter for surgical aftercare following surgery on the skin and subcutaneous tissue (principal); Z88.6 Allergy status to analgesic agent
CPT/HCPCS: 99282

== ENCOUNTER 2018-06-26 13:48 | Emergency (ER) | payer MEDICAID, OTHER ==
[~2018-06-26] VITALS: Ht 172.7 cm; Wt 61.2 kg
[2018-06-26] MEDS ORDERED: METHIMAZOLE5 MG PO (13:58)
[2018-06-26 14:19] VITALS: BP 106/68
[2018-06-26 14:37] LABS: APPEARANCE,URINE CLEAR; BILIRUBIN, URINE NEGATIVE (NEGATIVE); GLUCOSE, URINE (UA) NEGATIVE (NEGATIVE); KETONES,URINE NEGATIVE (NEGATIVE); LEUKOCYTE ESTERASE ,URINE 1+ (NEGATIVE); NITRITE,URINE NEGATIVE (NEGATIVE); PH,URINE 8 (4.5-8.0); PROTEIN,URINE NEGATIVE (NEGATIVE); UROBILINOGEN,URINE 1 MG/DL (0.0-1.0)
[2018-06-26 14:38] LABS: COLOR,URINE YELLOW
[2018-06-26] MEDS ORDERED: Albuterol/Ipratropium 3ml neb HHN ONE (14:45)
--- NOTE | 2018-06-26 15:19 | Emergency Room Report ---
History of Present Illness General Chief Complaint: General Complaint Source: Patient Present Illness HPI 42-year-old female presents to the emergency department complaining of bright red blood in her stool since yesterday. Denies pain. Patient states she has been taking Augmentin 4 days and believes that this may have caused her symptoms. Patient is also reporting some diarrhea as well. Patient states that she was being treated for URI. She is also reporting some dysuria and urinary frequency she denies abdominal pain or tenderness on this time. Patient denies fevers, chills, nausea or vomiting. Patient denies history of hemorrhoids. Allergies: Coded Allergies: ACETAMINOPHEN (Verified Allergy, Unknown, 01/04/18) HYDROCODONE (Verified Allergy, Unknown, 01/04/18) HYDROMORPHONE (Verified Allergy, Unknown, 01/04/18) CODEINE (Unverified Adverse Reaction, Unknown, NAUSEA, 12/29/17) Patient History Past Medical History: see triage record Past Surgical History: none Pertinent Family History: none Last Menstrual Period: 05/28/18 Reviewed Nursing Documentation: PMH: Agreed; PSxH: Agreed Nursing Documentation-PMH Past Medical History: No History, Except For Hx Hypertension: No Hx Pacemaker: No Hx Asthma: No Hx COPD: No Hx Diabetes: No Hx Cancer: No Hx Gastrointestinal Problems: No Hx Dialysis: No Hx Neurological Problems: No Hx Cerebrovascular Accident: No Hx Seizures: No Review of Systems All Other Systems: negative except mentioned in HPI Physical Exam Vital Signs Date Time Temp Pulse Resp B/P (MAP) Pulse Ox O2 Delivery O2 Flow Rate FiO2 06/26/18 13:54 98.4 83 18 106/68 95 Room Air 06/26/18 15:05 21 Sp02 EP Interpretation: reviewed, normal General Appearance: no apparent distress, alert, GCS 15, non-toxic Head: normocephalic, atraumatic Eyes: bilateral eye normal inspection, bilateral eye PERRL ENT: hearing grossly normal, normal voice Neck: full range of motion Respiratory: chest non-tender, lungs clear, normal breath sounds, no respiratory distress, speaking full sentences, wheezing - scant wheezing on expiration bilateratlly Cardiovascular #1: regular rate, rhythm Gastrointestinal: normal bowel sounds, non tender, soft Rectal: deferred Genitourinary: normal inspection, no CVA tenderness Musculoskeletal: back normal, gait/station normal, normal range of motion, non- tender Neurologic: alert, oriented x3, responsive, motor strength/tone normal, sensory intact, speech normal, grossly normal Psychiatric: judgement/insight normal Skin: normal color, no rash, warm/dry, well hydrated Lymphatic: no adenopathy Medical Decision Making PA Attestation Dr. Aponte is my supervising Physician whom patient management has been discussed with. Diagnostic Impression: Primary Impression: Cough Additional Impression: Medication side effect ER Course 42-year-old female presents to the emergency department complaining of bright red blood in her stool since yesterday. Denies pain. Patient states she has been taking Augmentin 4 days and believes that this may have caused her symptoms. Patient is also reporting some diarrhea as well. Patient states that she was being treated for URI. She is also reporting some dysuria and urinary frequency she denies abdominal pain or tenderness on this time. Patient denies fevers, chills, nausea or vomiting. Patient denies history of hemorrhoids. Ddx considered but are not limited to URI, pneumonia, PE, strep pharyngitis, meningitis, hemorrhoids, GI bleed just to name a few. Vital signs: Pt. is afebrile, the remaining VS are WNL H&PE are most consistent with URI- no meningeal signs, oropharynx is not involved, no evidence of bacterial infection at this time. --- PT. NAD , non- toxic in appearance. she describes small amt of blood and I do not suspect a significant acute bleed at this time. ORDERS: UA: unremarkable ED INTERVENTIONS: None required at this time. DISCHARGE: At this time pt. is stable for d/c to home. Will provide printed patient care instructions, and any necessary prescriptions. Care plan and follow up instructions have been discussed with the patient prior to discharge. Labs Test 06/26/18 14:20 Urine Color Yellow Urine Appearance Clear Urine pH 8 (4.5-8.0) Urine Specific [place] 1.010 (1.005-1.035) Urine Protein Negative (NEGATIVE) Urine Glucose (UA) Negative (NEGATIVE) Urine Ketones Negative (NEGATIVE) Urine Blood Negative (NEGATIVE) Urine Nitrite Negative (NEGATIVE) Urine Bilirubin Negative (NEGATIVE) Urine Urobilinogen 1 MG/DL (0.0-1.0) Urine Leukocyte Esterase 1+ (NEGATIVE) Urine RBC 0-2 /HPF (0 - 2) Urine WBC 2-4 /HPF (0 - 2) Urine Squamous Epithelial Cells Few /LPF (NONE/OCC) Urine Bacteria Few /HPF (NONE) Last Vital Signs Date Time Temp Pulse Resp B/P (MAP) Pulse Ox O2 Delivery O2 Flow Rate FiO2 06/26/18 15:12 78 20 98 Room Air 21 06/26/18 14:19 98.4 106/68 Disposition: HOME, SELF-CARE Condition: Stable Scripts Lactobac Cmb #3/Fos/Pantethine (PROBIOTIC & ACIDOPHILUS CAP) 1 Each Capsule 1 EACH PO BID for 7 Days, #14 CAP Prov: Svitlana Morgan 06/26/18 Guaifenesin (Guaifenesin) 1,200 Mg Tab.er.12h 1200 MG PO Q12HR, #20 TAB Prov: Svitlana Morgan 06/26/18 Albuterol Sulfate* (ALBUTEROL SULFATE MDI*) 8.5 Gm Hfa.aer.ad 2 PUFF INH Q4H, #1 INH 0 Refills Prov: Svitlana Morgan 06/26/18 Patient Instructions: Acute Bronchitis, [id number] Additional Instructions: Take medications as directed. Follow up with a Primary Care Provider in 3-5 days, even if your symptoms have resolved. --Please review list of primary care clinics, if you do not already have a primary care provider Return sooner to ED if new symptoms occur, or current symptoms become worse. - Please note that this Emergency Department Report was dictated using [employer] agent technology software, occasionally this can lead to erroneous entry secondary to interpretation by the dictation equipment. Svitlana Morgan Jun 26, 2018 15:19
[2018-06-26] MEDS ORDERED: PROBIOTIC & AC1 EAC1 PO (15:20)
[2018-06-26] MEDS ORDERED: ALBUTEROL SULF8.5 GM INH (15:20)
[2018-06-26] MEDS ORDERED: GUAIFENESIN1200 MG PO (15:20)
[2018-06-26 15:35] VITALS: BP 106/68
== END 2018-06-26 15:40 | disposition home or self-care (01) ==
LOC: EMR 14:38
DX: T36.0X5A Adverse effect of penicillins, initial encounter (principal); Y92.9 Unspecified place or not applicable; R19.7 Diarrhea, unspecified; K92.1 Melena; R05 Cough; Z88.6 Allergy status to analgesic agent; R30.0 Dysuria; R35.0 Frequency of micturition
CPT/HCPCS: 81003; 94640; 94664; 99284; J7620